=== PATIENT | female | born 1995 | race Caucasian/White ===

== ENCOUNTER → 2016-12-15 | Outpatient (CLI) | payer MEDICAID, OTHER ==
[~2016-12-15] VITALS: Ht 162.6 cm; Wt 61.2 kg
[~2016-12-15] MED LIST: CITA10TA5 PO; LIDOCAINE 2% INJ 100 MG/5 ML SDV (FOR ANES.) As Ordered ONE; NS 1,000 ML IV ONE; PROPOFOL 200 MG/20 ML VIAL As Ordered ONE; TRI-TAB PO
--- NOTE | 2016-12-15 13:48 | ROOR ---
Patient Name: Uma Espinoza Procedure Date: 12/15/2016 1:21 PM Date of : 1995 Age: 21 Room: OP02 Gender: Female Note Status: Finalized Procedure: Colonoscopy Indications: Change in bowel habits, Mucousy stools, abnormal stools. Providers: Hemal YOUNG MD Referring MD: MITESH BARNES MD Requesting Provider: Medicines: Monitored Anesthesia Care Complications: No immediate complications. Procedure: Pre-Anesthesia Assessment: - The heart rate, respiratory rate, oxygen saturations, blood pressure, adequacy of pulmonary ventilation, and response to care were monitored throughout the procedure. The Colonoscope was introduced through the anus and advanced to 10 cm into the ileum. The colonoscopy was performed without difficulty. The patient tolerated the procedure well. The quality of the bowel preparation was fair. Findings: The perianal and digital rectal examinations were normal. The terminal ileum appeared normal. A single erosion was found in the distal rectum. This was biopsied with a cold forceps for histology. Internal hemorrhoids were found during retroflexion. The hemorrhoids were small. The exam was otherwise normal throughout the examined colon. Impression: - Preparation of the colon was suboptimal/fair suggestive of constipation. Lavage was successful at clearing stool, with overall good visualisation. - The colon was normal. - The terminal ileum was normal. - Small intenal Hemorrhoids with erosion in the distal rectum. Biopsied. Recommendation: - Telephone endoscopist for pathology results in 2 weeks. - Use fiber, for example Citrucel, Fibercon, Konsyl or Metamucil. - Miralax 1 capful (17 grams) in 8 ounces of water PO daily. Hemal Yuong MD Hemal YOUNG MD 12/15/2016 1:47:38 PM This report has been signed electronically. Number of Addenda: 0 Note Initiated On: 12/15/2016 1:21 PM Estimated Blood Loss: Estimated blood loss: none.
[2016-12-15 14:18] VITALS: BP 111/66
== END | disposition home or self-care (01) ==
LOC: M OPP 12:22
PROVIDERS: ATTEND Internal Medicine Gastroenterology
DX: R19.5 Other fecal abnormalities (principal); R19.4 Change in bowel habit; K62.6 Ulcer of anus and rectum; K64.8 Other hemorrhoids; F32.9 Major depressive disorder, single episode, unspecified; Z79.899 Other long term (current) drug therapy; Z80.9 Family history of malignant neoplasm, unspecified